=== PATIENT | female | born 1940 | race Caucasian/White ===

== ENCOUNTER 2017-09-12 10:42 | Outpatient (CLI) | payer OTHER ==
[~2017-09-12 10:42] MED LIST: LIPO-FLAVONOID1 EACH PO; SYNTHROID88 MCG; ZOCOR20 MG
== END 2017-09-12 10:46 | disposition home or self-care (01) ==
LOC: RAD 10:42
DX: M12.872 Other specific arthropathies, not elsewhere classified, left ankle and foot (principal); M12.871 Other specific arthropathies, not elsewhere classified, right ankle and foot; M19.072 Primary osteoarthritis, left ankle and foot; M19.071 Primary osteoarthritis, right ankle and foot

== ENCOUNTER 2018-03-26 07:39 | Outpatient (CLI) | payer OTHER | END 2018-03-26 07:45 | disposition home or self-care (01) | LOC: NUCLEAR 07:39 | DX: I73.9 Peripheral vascular disease, unspecified (principal) ==

== ENCOUNTER → 2020-01-25 | Outpatient (CLI) | payer OTHER | END | disposition home or self-care (01) | LOC: MAMO-SONO 13:15 → SONOGRAMA 13:34 | PROVIDERS: ATTEND Internal Medicine Cardiovascular Disease | DX: M12.812 Other specific arthropathies, not elsewhere classified, left shoulder (principal) ==

== ENCOUNTER 2022-08-02 10:34 | Emergency (ER) | payer OTHER ==
[~2022-08-02] VITALS: Ht 157.5 cm; Wt 59.0 kg
== END 2022-08-02 12:53 | disposition home or self-care (01) ==
LOC: ER 10:34
DX: S39.92XA Unspecified injury of lower back, initial encounter (principal); W19.XXXA Unspecified fall, initial encounter; Y93.9 Activity, unspecified; Y92.019 Unspecified place in single-family (private) house as the place of occurrence of the external cause